=== PATIENT | male | born 1990 | race Two or more races ===

== ENCOUNTER 2018-08-15 12:54 | Emergency (ER) | payer OTHER ==
[~2018-08-15] VITALS: Ht 167.6 cm; Wt 88.9 kg
[2018-08-15 12:58] VITALS: BP 116/77
--- NOTE | 2018-08-15 13:08 | NUR ---
SEEN AND EXAMINED BY DR. THORNTON.
--- NOTE | 2018-08-15 13:34 | NUR ---
COLORING CHECKER AT BEDSIDE FOR XRAY.
--- NOTE | 2018-08-15 15:15 | NUR ---
Patient discharged to home in stable condition. Written and verbal after care instructions given. Patient verbalizes understanding of instruction.
== END 2018-08-15 15:16 | disposition home or self-care (01) ==
LOC: ER 12:56
DX: M25.531 Pain in right wrist (principal); M25.511 Pain in right shoulder; Y04.8XXA Assault by other bodily force, initial encounter; Y93.89 Activity, other specified; Y92.89 Other specified places as the place of occurrence of the external cause; Y99.0 Civilian activity done for income or pay
CPT/HCPCS: 73030-TC; 73110